=== PATIENT | male | born 1950 | race Caucasian/White ===

== ENCOUNTER 2017-08-21 07:33 | Day surgery (SDC) | payer MEDICARE, OTHER ==
[2017-08-20 11:56] LABS: International Normalized Ratio 1.07; Prothrombin Time Results 11.2 Sec (9.7-11.5)
[~2017-08-21] VITALS: Ht 193 cm; Wt 130.2 kg
[~2017-08-21 07:33] MED LIST: JANUMET XR 50-1 EAC1 PO; JARDIANCE25 MG PO; METF500 PO; VALS80 PO; WARF5 PO
[2017-08-21] MEDS ORDERED: PROM25 PO (12:36)
[2017-08-21] MEDS ORDERED: OXYC5 PO (12:37)
[2017-08-22 04:44] LABS: BASOPHILS ABSOLUTE AUTO 0.05 K/mm3 (0.00-0.23); BASOPHILS PERCENT AUTO 1 % (0-2); EOSINOPHILS ABSOLUTE AUTO 0.15 K/mm3 (0.00-0.68); EOSINOPHILS PERCENT AUTO 2 % (0-6); Hematocrit 38.8 % (37.0-53.0); IMMATURE GRAN ABSOLUTE AUTO 0.04 K/mm3 (0.00-0.10); IMMATURE GRAN PERCENT AUTO 1 % (0-1); LYMPHOCYTES ABSOLUTE AUTO 1.59 K/mm3 (0.84-5.20); LYMPHOCYTES PERCENT AUTO 18 % (21-46); MONOCYTES ABSOLUTE AUTO 0.95 K/mm3 (0.16-1.47); MONOCYTES PERCENT AUTO 11 % (4-13); Mean Corpuscular HGB 29.9 pg (26.0-34.0); Mean Corpuscular HGB Conc 33.5 g/dL (31.5-36.5); Mean Corpuscular Volume 89 fL (80-100); Mean Platelet Volume 11.3 fL (9.1-12.4); NEUTROPHILS ABSOLUTE AUTO 5.96 K/mm3 (1.96-9.15); NEUTROPHILS PERCENT AUTO 68 % (41-73); Platelet Count 173 K/mm3 (150-400); RDW Coefficient Variation 14.1 % (11.7-14.2); RDW Standard Deviation 46.1 fL (35.1-46.3); Red Blood Cell Count 4.35 M/mm3 (4.30-5.90); White Blood Cell Count 8.74 K/mm3 (4.00-11.30)
[2017-08-22 05:01] LABS: Anion Gap 7 mmol/L (6-16); Blood Urea Nitrogen 18 mg/dL (8-24); Bun/Creatinine Ratio 18.8 (12.0-20.0); CO2, Blood 26 mmol/L (21-32); Calcium, Blood 8.4 mg/dL (8.5-10.1); Chloride, Blood 106 mmol/L (98-108); Creatinine, Blood 0.96 mg/dL (0.60-1.20); Glomerular Filtration Rate >60 (60-); Glucose, Blood 119 mg/dL (70-99); International Normalized Ratio 1.07; Potassium, Blood 4.1 mmol/L (3.5-5.5); Prothrombin Time Results 11.1 Sec (9.7-11.5); Sodium, Blood 139 mmol/L (136-145)
== END 2017-08-22 13:40 | disposition home or self-care (01) ==
LOC: ORSCMMR 07:33 → SURS 07:33 → PRE IP 07:33 → SURS 07:33 → PRE IP 10:00 → EDSTATUS 10:00 → SURS 13:37 → ORSCMMR 08-22 13:40
PROVIDERS: Orthopaedic Surgery
PROC: 0SRD0J9 Replacement of Left Knee Joint with Synthetic Substitute, Cemented, Open Approach (ICD-10-PCS; principal; 2017-08-21 10:00)
DX: M17.12 Unilateral primary osteoarthritis, left knee (principal); I10 Essential (primary) hypertension; E11.9 Type 2 diabetes mellitus without complications; I48.91 Unspecified atrial fibrillation; Z79.01 Long term (current) use of anticoagulants; G47.33 Obstructive sleep apnea (adult) (pediatric); E66.9 Obesity, unspecified; Z68.34 Body mass index [BMI] 34.0-34.9, adult; Z79.899 Other long term (current) drug therapy
CPT/HCPCS: 36415; 73560-LT; 80048; 82947; 83735; 85025; 85610; 85730; 86850; 86900; 86901; 88300; 97110; 97116; 97161; C1713; C1776; G8978; G8979; G8980; J0171; J0690; J0735; J1885; J2250; J2795; J3010; J3370; J7120

== ENCOUNTER 2020-09-27 08:15 | Day surgery (SDC) | payer MEDICARE ==
[~2020-09-27] VITALS: Ht 193 cm; Wt 123.7 kg
[~2020-09-27 08:15] MED LIST changes: +ATOR20; +ELIQUIS5 MG; +OXYC5 PO; +PROM25 PO; +TRULICITY1.5 MG/0.1
[2020-09-27] MEDS ORDERED: LOSA25 (08:55)
--- NOTE | 2020-09-27 09:43 | NUR ---
09/27/20 0943 BONI ERAZO UTILIZED IN PROCEDURE.
== END 2020-09-27 10:43 | disposition home or self-care (01) ==
LOC: ORSCSDS 08:15
PROVIDERS: Student in an Organized Health Care Education/Training Program
PROC: 0DBL8ZX Excision of Transverse Colon, Via Natural or Artificial Opening Endoscopic, Diagnostic (ICD-10-PCS; principal; 2020-09-27 09:30)
PROC: 0DBN8ZX Excision of Sigmoid Colon, Via Natural or Artificial Opening Endoscopic, Diagnostic (ICD-10-PCS; principal; 2020-09-27 09:30)
PROC: 0DBH8ZX Excision of Cecum, Via Natural or Artificial Opening Endoscopic, Diagnostic (ICD-10-PCS; principal; 2020-09-27 09:30)
DX: Z12.11 Encounter for screening for malignant neoplasm of colon (principal); D12.3 Benign neoplasm of transverse colon; K57.30 Diverticulosis of large intestine without perforation or abscess without bleeding; E11.9 Type 2 diabetes mellitus without complications; I48.91 Unspecified atrial fibrillation; J44.9 Chronic obstructive pulmonary disease, unspecified; Z79.01 Long term (current) use of anticoagulants; Z79.84 Long term (current) use of oral hypoglycemic drugs; Z79.899 Other long term (current) drug therapy
CPT/HCPCS: 82947; 88305; J2405; J2704; J7120

== ENCOUNTER 2023-11-08 12:37 | Day surgery (SDC) | payer MEDICARE, OTHER ==
[~2023-11-08] VITALS: Ht 193 cm; Wt 118.2 kg
[~2023-11-08 12:37] MED LIST changes: +LOSA25; +Lactated Ringer's 1,000 ML IV ONE
[2023-11-08] MEDS ORDERED: JARDIANCE25 MG (12:50)
[2023-11-08] MEDS ORDERED: LISI5 (12:50)
[2023-11-08] MEDS ORDERED: Januvia100 MG (12:51)
[2023-11-08] MEDS ORDERED: RYBELSUS7 MG (12:51)
[2023-11-08] MEDS ORDERED: Lactated Ringer's 1,000 ML IV ONE (13:00)
[2023-11-08] MEDS ORDERED: Etomidate 2MG / ML 10ML Vial ONE (13:24)
[2023-11-08] MEDS ORDERED: propofoL 50 ML IV ONE (13:42)
[2023-11-08 14:38] VITALS: BP 116/83
== END 2023-11-08 14:38 | disposition home or self-care (01) ==
LOC: ORSCSDS 12:37
PROVIDERS: Internal Medicine Gastroenterology
PROC: 0DBK8ZX Excision of Ascending Colon, Via Natural or Artificial Opening Endoscopic, Diagnostic (ICD-10-PCS; principal; 2023-11-08 13:45)
DX: Z12.11 Encounter for screening for malignant neoplasm of colon (principal); K63.5 Polyp of colon; Z86.010 Personal history of colon polyps; F17.210 Nicotine dependence, cigarettes, uncomplicated; G47.33 Obstructive sleep apnea (adult) (pediatric); I48.0 Paroxysmal atrial fibrillation; E11.42 Type 2 diabetes mellitus with diabetic polyneuropathy; I12.9 Hypertensive chronic kidney disease with stage 1 through stage 4 chronic kidney disease, or unspecified chronic kidney disease; E11.22 Type 2 diabetes mellitus with diabetic chronic kidney disease; N18.9 Chronic kidney disease, unspecified; Z79.01 Long term (current) use of anticoagulants; Z79.84 Long term (current) use of oral hypoglycemic drugs; Z79.85 Long-term (current) use of injectable non-insulin antidiabetic drugs; Z79.899 Other long term (current) drug therapy
CPT/HCPCS: 82947; 88305; J2704; J7120